=== PATIENT | male | born 1990 | race Caucasian/White ===

== ENCOUNTER 2020-10-31 14:17 | Inpatient (IN) | payer OTHER ==
[~2020-10-31] VITALS: Ht 188 cm; Wt 72.7 kg
[2020-10-31] VITALS (8 sets, daily range): BP systolic 110–151; BP diastolic 71–93; PULSE 72–112; TEMP 97.7–98
[~2020-10-31 14:17] MED LIST: ANTIVERT 25MG25 MG PO; NO HOME MEDICATIONS
[2020-10-31 15:11] LABS: BASO # 0.2 (0.0-0.2); BASO % 2.3 % (0.0-2.0); EOS # 0.6 (0.0-0.7); EOS % 8.2 % (0-4.0); GRAN # 3.6 (1.4-6.5); GRAN % 50.1 % (42.2-75.2); HEMATOCRIT 41.2 % (42.0-52.0); HEMOGLOBIN 14.2 g/dl (13.5-18.0); LYMPH # 2.3 (1.2-3.4); LYMPH % 31.3 % (20.0-51.0); MEAN CELL VOLUME 91 fl (80.0-100.0); MEAN CORPUSCULAR HEMOGLOBIN 31 pg (27.0-31.0); MEAN CORPUSCULAR HGB CONC 35 g/dl (33.0-37.0); MEAN PLATELET VOLUME 8.6 fl (7.4-10.4); MONO # 0.6 (0.1-0.6); PLATELET COUNT 309 K/mm3 (130-400); RED BLOOD COUNT 4.52 M/mm3 (4.20-5.60); REDCELL DISTRIBUTION WIDTH-CV 13.3 % (11.5-14.5)
[2020-10-31 15:21] LABS: ALANINE AMINOTRANSFERASE 22 U/L (4-49); ALCOHOL(ethanol),MEDICAL 258 mg/dL; ALKALINE PHOSPHATASE 69 U/L (50-136); ANION GAP 13 mmol/L (7-16); AST,SGOT 39 U/L (15-37); BILIRUBIN,TOTAL 0.4 mg/dL (0.0-1.0); BLOOD UREA NITROGEN 10 mg/dL (9-20); CALCIUM 9.3 mg/dL (8.4-10.2); CARBON DIOXIDE 27 mmol/L (22-30); CHLORIDE 99 mmol/L (98-107); CREATININE, serum 1.09 (0.66-1.25); GLUCOSE 107 mg/dL (74-106); POTASSIUM 3.9 mmol/L (3.4-5.0); SODIUM 140 mmol/L (137-145); TOTAL PROTEIN 7.8 gm/dL (6.4-8.2)
[2020-10-31 15:23] LABS: ACETAMINOPHEN < 10 ug/mL (10-30); SALICYLATE < 1.0 mg/dL
[2020-10-31 15:53] LABS: TSH w REFLEX 0.485 uIU/mL (0.465-4.680)
[2020-10-31] MEDS ORDERED: TUMS EXTRA STR750 MG PO (16:08)
[2020-10-31] MEDS ORDERED: ADDERALL10 MG PO (16:10)
[2020-10-31] MEDS ORDERED: IBU800 M1 PO (16:10)
[2020-10-31] MEDS ORDERED: KOVANAZE 6-0.11 EACH NS (16:11)
[2020-10-31] MEDS ORDERED: TYLENOL 8 HR PO (16:11)
[2020-10-31] MEDS ORDERED: NEURONTIN300 MG/CAP PO (16:11)
[2020-10-31] MEDS ORDERED: ABILIFY5 MG PO (16:12)
[2020-10-31] MEDS ORDERED: ATARAX50 MG PO (16:12)
[2020-10-31] MEDS ORDERED: PROZAC 20MG20 MG PO (16:12)
[2020-10-31] MEDS ORDERED: PROZAC 10MG10 MG PO (16:13)
[2020-10-31] MEDS ORDERED: LEVITRA5 MG PO (16:14)
[2020-10-31] MEDS ORDERED: SUBOXONE 2 MG-01 TAB SL (16:15)
[2020-10-31] MEDS ORDERED: ROBAXIN 75750 MG/TAB PO (16:16)
[2020-10-31 17:11] LABS: COLLECTION METHOD CLEAN CATCH
[2020-10-31 17:16] LABS: MUCOUS Present /lpf; PH 5 (5-8); SQUAMOUS EPITHELIAL 0-2 /hpf; URINE APPEARANCE Hazy; URINE BACTERIA None Seen /hpf; URINE BILIRUBIN Negative (NEGATIVE); URINE BLOOD Negative (NEGATIVE); URINE COLOR Yellow; URINE GLUCOSE Negative (NEGATIVE); URINE KETONE Negative (NEGATIVE); URINE LEUKOCYTE ESTERASE Negative (NEGATIVE); URINE NITRATE Negative (NEGATIVE); URINE PROTEIN(semi-quant) Negative (NEGATIVE); URINE RBC 0-2 /hpf
[2020-10-31 17:25] LABS: TRICYCLIC ANTIDEPRESS URINE NEGATIVE
[2020-10-31 18:24] LABS: PROTHROMBIN TIME 11.1 SECONDS (9.7-12.8)
--- NOTE | 2020-10-31 19:15 | NUR ---
Per report from day shift nurse-- patient is not on suicide precautions per ER- no suicide thoughts at this time when patient asked, will continue to assess - history of attempts in the past
--- NOTE | 2020-10-31 19:30 | NUR ---
Came up from ER- ETOH detox, drowsy -VSS, confused- doesnt know why he is feeling like this?,,doesnt know where he is at this time-- reoriented,, no tremors noted- states he is anxious and moving around in bed-- VSS, will give the Valium that is ordered at this time-- IV fludis of NS at 125cc/hr. Seizure pads on bed, side rails up x4, call light in reach-- bed alarm on.
--- NOTE | 2020-10-31 23:05 | NUR ---
patietn sleeping soundly-confused when awaken-- unable to get answers regarding home meds/any info at this time-- pt states no pharmacy but yet looks like he picked up some new scripts at a [facility] ? cant give the town-- has 4 pieces of luggage and 4 personal property white bags from ER ---all outside of patients room, pt has his cell phone and charger tester in room with him, also a couple small notebooks and a action figure. Urinal at bedside. bed alarm on. Close to [facility].
[2020-11-01] VITALS (26 sets, daily range): BP systolic 110–132; BP diastolic 49–82; PULSE 51–83; TEMP 97.3–98.2
--- NOTE | 2020-11-01 03:31 | NUR ---
Pt belongings placed in closet inside linen closet on medical. Call Lockstitch Front Edge Tape Sewer when pt is ready to discharge to unlock door and get belongings.
--- NOTE | 2020-11-01 04:30 | NUR ---
Pt has been sleeping soundly-- detox scores only 0-1 during the shift, patient is getting the Valium 10 mg po every 8 hrs--has been sleeping well with this,, now awake, Up to bathroom with 1 assist- drowsy but steady on feet-- voiding well, pt remains confused as to where he is and the time-"how did I get here?",, did do the suicide assessment now that patient is awake-- denies any suicide thoughts at this time but does say he wishes he would not wake up-- did have a suicide attempt 2 weeks ago -- did call Ame CHANEY and will put pt on suicide precautions level 1 with every 15 minutes checks-- did tie off chords , and removed plastic bags from trash-- pt did not want on quinn gown-has shorts on -back to bed and Valium given-- back to sound sleep within minutes-- VSS throughout the night
--- NOTE | 2020-11-01 08:15 | NUR ---
Shift assessment complete. Reports 8/10 pain to back, tylenol administered. Heart RRR, lungs CTA, A&Ox4. Seizure and suicide precautions in place. Denies active suicidal thoughts but does report a suicide attempt a couple weeks ago and wishing he would not wake up. Continuing to monitor.
--- NOTE | 2020-11-01 13:15 | NUR ---
Pt reported chest pain 3/10 that occasionally became sharp and increased to 6/10 at 1200. DEYVI Cantu notified. 325 mg tylenol ordered and given. EKG done and troponins drawn WNL. Rechecked pt at 1245 who reported no improvement in pain and felt that chest was now tight and was having SOA. Vital signs stable, placed pt on 1 lpm NC for comfort and notified Alondra. Ordered to administer 0.5 mg ativan now. Pt reports improvement in chest pain and SOA with O2 and ativan.
--- NOTE | 2020-11-01 16:47 | NUR ---
Patient is currently on suicide precautions. SULTANA will complete intake with patient after psych screening is complete. Dr. Crooks to see patient this afternoon. SULTANA contacted Talia Silver, Clinical Liason at [facility] in [place] and left a message. Per H&P, patient was recently discharged from there about a month ago for drug and alcohol treatment and is interested in going back. Patient has been homeless since discharge from [facility]. SULTANA will follow up tomorrow.
[2020-11-02] VITALS (44 sets, daily range): BP systolic 104–126; BP diastolic 55–80; PULSE 57–115; TEMP 97.4–98
--- NOTE | 2020-11-02 01:13 | NUR ---
Patient resting in bed with eyes closed upon shift start. Appears slightly drowsy. Patient is currently on alcohol detox and suicidal precaution. Patient c/o pain to his chest 7 out of 10. PRN Ibuprofen given. Patient denies suicidal thought at this time. All sheduled meds given per NOV. Patient c/o pain to his chest 8 out of 10 around 0100. Hospitalist DEYVI Chmabers notified and DEYVI Chambers assessed and checked on patient at 01:10 am. PRN Ibuprofen given at this time. Suicidal precaution maintained.
--- NOTE | 2020-11-02 05:25 | NUR ---
Patient slept well throughout the night. Gets confused upon wakes up. C/O chest pain a few times. PRN pain meds given. Call light within reach. Suicidal precaution maintained throughout the night.
[2020-11-02 06:56] LABS: HEMATOCRIT 37.3 % (42.0-52.0); HEMOGLOBIN 12.4 g/dl (13.5-18.0); MEAN CORPUSCULAR HEMOGLOBIN 32 pg (27.0-31.0); MEAN CORPUSCULAR HGB CONC 33 g/dl (33.0-37.0); PLATELET COUNT 228 K/mm3 (130-400); RED BLOOD COUNT 3.87 M/mm3 (4.20-5.60); REDCELL DISTRIBUTION WIDTH-CV 13.2 % (11.5-14.5)
[2020-11-02 06:57] LABS: MEAN CELL VOLUME 96 fl (80.0-100.0)
[2020-11-02 07:05] LABS: CALCIUM 8.9 mg/dL (8.4-10.2); CREATININE, serum 0.76 (0.66-1.25); POTASSIUM 4.3 mmol/L (3.4-5.0)
--- NOTE | 2020-11-02 08:21 | NUR ---
Pt napping upon entry, no C/O pain at this time. Shift assessment complete.
--- NOTE | 2020-11-02 15:52 | NUR ---
Payroll And Benefits Coordinator met with patient to discuss discharge planning. Patient states that he was at [facility] about a month ago. Patient states since then he's been staying wherever he can. When asked how he got to [place], patient states his mom just brought him here. Patient is open to inpatient drug and alcohol placment. Patient states his life goal right now is to get to [place] and he would like to get to treatment out there. SW advised patient we would not be able to place him in [place] from here and would be looking into local placement. SW inquired how patient planned to get to [place] and he states his mom may purchase him a plane ticket if he could find somewhere to go. After this, SW contacted [facility] and faxed a referral. Rose Mary at [facility] advised they would not be able to accept at this time. SULTANA called and left a message for Paty at [facility]. Paty returned SULTANA's call and left a message advising they would not have beds until November. SULTANA contacted [facility] in [place] and [facility] in [place] and faxed referrals. SULTANA contacted Flor Forrest at [facility] who advised they could schedule a drug and alcohol assessment if patient needed outpatient services until inpatient placement could be found. SULTANA then contacted patient's mother Joceline who advised she brought patient to [place] because she has not had a lot of luck in the [place] getting patient help. Joceline states she found [facility] online and called them. Joceline states she was advised to bring patient to [place] ED for detox and then patient can go there. SULTANA advised Joceline that referrals were sent to [facility], [facility], and [facility]. SULTANA also advised that [facility] declined and that [facility] in [place] has no beds. Joceline advised patient has been to [facility] twice and that the last time their was an incident with the police because patient did not want to provide a urine sample. Joceline states patient has also been to [facility] and it was okay. Joceline states as soon as patient leaves a facility he doesn't keep up with his medications. Joceline states patient has also stayed with her and she has been paying for him to stay in hotels. Joceline states she can no longer put patient up in a hotel so patient would just probably stay with her. SULTANA advised Joceline that if placement is not found, patient would be discharged. Joceline states she would come get patient as that would be the only options. Joceline did express frustration because her understanding from [facility] was that patient could easily go to the Crisis Unit. SW contacted the [facility] St[facility] and they advised they can screen for placement in the CSU once patient is medically cleared for discharge, but their focus is mental health, not drug and alcohol. SW followed up with patient who states he is hopeful to get to a warmer climate like [place] because he states even if he is placed somewhere, he will end up back on the streets. SW advised she could not get him to [place] and that if placement cannot be found, he would be discharged. Patient verbalized understanding. SULTANA followed up with Davey at [facility] who advised they could possibly take patient tomorrow if his insurance is the same as last time and if patient's mother was agreeable to be a co-signer. SULTANA will follow up with Joceline about this.
--- NOTE | 2020-11-02 16:35 | NUR ---
Heater Installer attempted to follow up with patient's mother, Joceline and left a message.
--- NOTE | 2020-11-02 19:26 | NUR ---
Pt resting in the room, ahs had no C/O pain during the day. Pt has been calm and cooperative. Steady when ambulating. VS have remained stable.
--- NOTE | 2020-11-02 23:17 | NUR ---
Patient sittint up and eating dinner upon shift start. Ate 100% of dinner. Patient alert and oriented. No c/o pain or discomfort at this time. No SOB or dyspnea noted. IV fluid infusing well to right AC. Scheduled meds given. Patient denies suicidal thought at this time. Patient states he is getting anxious about discharge tomorrow. Encouraged distraction and relaxation technique. Call light within reach. Suicidal precaution maintained.
[2020-11-03] VITALS (28 sets, daily range): BP systolic 111–141; BP diastolic 56–83; PULSE 70–80; TEMP 97.5–98.2
--- NOTE | 2020-11-03 06:21 | NUR ---
PRN Tylenol give this morning for lower back pain. 1 cup of coffee and ice cream provided at this time per patient request. Suicide precaution maintained throughout the shift. Will continue to monitor.
--- NOTE | 2020-11-03 07:00 | NUR ---
PT IS SLEEPING AT THIS TIME. NO CONERNS. SUICIDE WATCH REMAINS Q15M. WILL CONTACT PROVIDER. NO FURTHER CONCERNS AT THIS TIME.
[2020-11-03 07:29] LABS: HEMOGLOBIN 12.4 g/dl (13.5-18.0); MEAN CELL VOLUME 95 fl (80.0-100.0); MEAN CORPUSCULAR HEMOGLOBIN 32 pg (27.0-31.0); MEAN CORPUSCULAR HGB CONC 34 g/dl (33.0-37.0); MEAN PLATELET VOLUME 9.5 fl (7.4-10.4); PLATELET COUNT 247 K/mm3 (130-400); RED BLOOD COUNT 3.87 M/mm3 (4.20-5.60); REDCELL DISTRIBUTION WIDTH-CV 13.2 % (11.5-14.5)
[2020-11-03 07:45] LABS: HEMATOCRIT 36.9 % (42.0-52.0)
[2020-11-03 07:47] LABS: CALCIUM 8.7 mg/dL (8.4-10.2); CREATININE, serum 0.75 (0.66-1.25); POTASSIUM 4.2 mmol/L (3.4-5.0)
--- NOTE | 2020-11-03 10:35 | NUR ---
PT BELONGINGS RETURNED TO PT'S ROOM. MEDICATIONS IN BELONGINGS ARE NOW SENT TO PHARMACY TO BE LOGGED IN, AND PT'S OWN MEDICATION DOSAGES SENT UP TO THE FLOOR FOR THE PATIENT. THE PT HAS BEEN DENIED BY [facility], AND WILL NEED TO GO TO [facility] FOR TREATMENT. SW HAS BEEN IN COMMUNICATIONS WITH THE PATIENT'S MOTHER, AND SHE WILL ARRIVE TO RETAIL PHARMACY TECHNICIAN THE PATIENT AT 6PM. PT WILL BE MONITORED UNTIL PARENT ARRIVES. NO FURTHER CONCERNS AT THIS TIME.
[2020-11-03] MEDS ORDERED: PROTONIX 40MG T40 MG PO (11:27)
--- NOTE | 2020-11-03 12:47 | NUR ---
Recorder Helper [employer] spoke to Sylwia at [facility] and they do not accept patient's insurance. SULTANA contacted Brandy, Therapist at [facility] to complete a screen for patient as patient's mother, Joceline wanted patient to go to the [facility]. Brandy completed a screen with patient and states they cannot take patient and recommend he go to drug/alcohol treatment. SULTANA contacted Davey at [facility] and reviewed insurance card provided by patient's mother, Joceline for patient. Davey advised they will hold a bed for patient until midnight as long as Joceline is willing to be a cosigner for patient. SULTANA met with patient who is agreeable to go to [facility]. SULTANA contacted Joceline to provide update. Joceline expressed frustration that [facility] could not take patient and states [facility] is not ideal. SULTANA advised that patient will be discharged today and [facility] is the only bed availablility today. Joceline states she is willing to be a cosigner at this point and will pickup driver patient at 1800 to take him to [facility]. SULTANA contacted Davey at [facility] and advised that Joceline will pickup driver patient in [place] at 1800, which would likely put arrival time to [facility] in [place] at 2000. Davey states this is fine. SULTANA faxed discharge orders to [facility]. SULTANA met with patient again and advised his mom would be here to pick him up at 1800 to go to [facility]. Patient verbalized understanding that this is his only option right now but states his mom is mad at him. Patient reports that he and his mom do not have a good relationship and she makes him crazy. Patient states as soon as the weather is warmer, he plans to hitch hike to [place]. SULTANA collaborated the above information to Cynthia LEON.
--- NOTE | 2020-11-03 17:45 | NUR ---
PT DISCHARGED HOME WITH MOTHER WHO IS TRANSPORTING TO [facility].
== END 2020-11-03 18:00 | disposition home or self-care (01) | DRG 897 ==
LOC: COL.ER 14:17 → MEDICAL 17:45
PROVIDERS: Nurse Practitioner; Physician Assistant; ADMIT Family Medicine
DX: F10.10 Alcohol abuse, uncomplicated (principal); F90.9 Attention-deficit hyperactivity disorder, unspecified type; F20.9 Schizophrenia, unspecified; F32.9 Major depressive disorder, single episode, unspecified; M43.10 Spondylolisthesis, site unspecified; F17.210 Nicotine dependence, cigarettes, uncomplicated; F43.10 Post-traumatic stress disorder, unspecified; F60.9 Personality disorder, unspecified; F15.10 Other stimulant abuse, uncomplicated; K21.9 Gastro-esophageal reflux disease without esophagitis
CPT/HCPCS: 99222-AI; 99232-AI; J1650; J2060; J7030